=== PATIENT | female | born 1950 | race Asian ===

== ENCOUNTER 2024-08-16 03:55 | Emergency (ER) | payer BC, SELFPAY ==
[2024-08-16] VITALS (18 sets, daily range): BP systolic 138–175; BP diastolic 54–100; PULSE 55–66; TEMP 36.9; O2SAT 93–99; BMI 24.7
--- NOTE | 2024-08-16 04:12 | ECG_ITS ---
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
--- NOTE | 2024-08-16 04:21 | ED_ITS ---
HPI - Abdominal Pain General Chief Complaint: Abdominal Pain Stated Complaint: ABDOMINAL PAIN Time Seen by Provider: 08/16/24 04:12 Source: patient Mode of arrival: walk-in Limitations: no limitations History of Present Illness HPI narrative: The patient presents to the ER with right upper quadrant pain associated with epigastric pain that is burning in nature, this pain has been going on since which is almost 5 days ago The patient mentioned that the pain is not associate with any nausea vomiting or any change in bowel movement She mentioned that sometimes the pain radiates to her right ear The patient pain was not specific she mentioned that sometimes in the lower chest and it is also with taking a deep breath Related Data Previous Rx's ?Medication ?Instructions ?Recorded bisacodyl 5 mg tablet,delayed 5 mg PO DAILY PRN constipation #10 08/16/24 release (Dulcolax (bisacodyl)) tabs Allergies Allergy/AdvReac Type Severity Reaction Status Date / Time No Known Drug Allergies Allergy Verified 08/16/24 04:03 Review of Systems ROS Status of ROS 10 or more systems reviewed and unremark able except as noted in history and below PFSH PFSH Social History Little interest or pleasure in doing things: not at all Feeling down, depressed, or hopeless: not at all Exam Narrative Exam Narrative: Nurses notes and vital signs reviewed and patient is not hypoxic. General: Well-appearing and in no apparent distress. Skin: Warm, dry, no pallor noted. No rash. Head: Normocephalic, atraumatic. Neck: Supple, non-tender. Eye: Pupils are equal, round and EOMI. No scleral icterus. Ears, Nose, Mouth, and Throat: TM are clear, no nasal mucosal hypertrophy. Oral mucosa is moist, no posterior oropharynx erythema, uvula is mid-line Cardiovascular: Regular Rate and Rhythm without murmur, gallop or rub. Respiratory: No accessory muscle use or respiratory distress. Lungs are clear to auscultation, no wheezing, rales or rhonchi Chest Wall: no tenderness Back: No midline thoracic or lumbar vertebral tenderness. No CVA tenderness Musculoskeletal: normal ROM, no calf or popliteal tenderness, no lower extremity edema/swelling GI: Abdomen is soft, non-distended. Normal bowel sounds. No masses appreciated. No tenderness to palpation. No rebound, guarding, or rigidity noted. Constitutional Vital Signs, click to edit/add: Last Vital Signs Temp 98.4 F 08/16/24 04:14 Pulse 56 L 08/16/24 06:00 Resp 17 08/16/24 06:00 BP 165/54 H 08/16/24 06:00 Pulse Ox 97 08/16/24 06:00 O2 Del Method Room Air 08/16/24 04:14 Course Vital Signs Vital signs: Vital Signs Blood Pressure 168/100 H 08/16/24 04:10 Pulse Oximetry 98 08/16/24 04:10 Temperature 98.4 F 08/16/24 04:14 Pulse Rate 56 L 08/16/24 06:00 Respiratory Rate 17 08/16/24 06:00 Blood Pressure 165/54 H 08/16/24 06:00 Pulse Oximetry 97 08/16/24 06:00 Oxygen Delivery Method Room Air 08/16/24 04:14 MDM - Abdominal Pain MDM Narrative Medical decision making narrative: The patient EKG was showing sinus rhythm with a heart rate of [address] elevation or depression The patient pain was not specific I could not elicit the pain on exam and the patient was complaining of having pain in her lower chest and the upper abdomen on the right side The patient CBC and chemistry showed no acute pathology with her blood sugar was 500 with no anion gap or any acidosis The patient was provided IV fluid in addition to insulin she mentioned that she did not take her medication yesterday because she did not eat Although the patient does take Lantus as well The patient CAT scan showed that she have constipation and cholelithiasis but there is no tenderness in the right upper quadrant and no concern for gallbladder infection Patient pain is not typical for right upper quadrant pain and I could not elicit the pain with palpation The patient already have her insulin at home and she does not need any refills The patient CAT scan shows constipation and with the fact that she is not tender and the fact that the pain is crampy-like The patient was discharged with Dulcolax for constipation management with instruction to come back to the ER in case of any worsening of symptoms The patient is to follow up with primary care physician in next 2-3 days or to return to the emergency department should any of the signs or symptoms worsen or new symptoms develop. The patient agrees with the following Diagnosis and Treatment plan and the patient will be discharged home. Lab Data Labs: Lab Results 08/16/24 08/16/2425 Range/Units 04:05 04:30 06:18 WBC 5.0 (4.0-11.0) 10^3/uL RBC 4.76 (4.20-5.40) 10^6/uL Hgb 14.7 (12.0-16.0) g/dL Hct 41.5 (36.0-48.0) % MCV 87.2 (81.0-99.0) fL MCH 30.9 (26.7-34.0) pg MCHC 35.4 H (29.9-35.2) g/dL RDW 11.9 (11.0-15.0) % Plt Count 234 (150-450) 10^3/uL MPV 9.9 (9.5-13.5) fL Neut % (Auto) 50.1 (43.0-75.0) % Lymph % (Auto) 37.4 (20.5-60.0) % [place] % (Auto) 9.5 (1.7-12.0) % Eos % (Auto) 2.4 (0.9-7.0) % Baso % (Auto) 0.6 (0.2-2.0) % Neut # (Auto) 2.5 (1.4-6.5) 10^3/uL Lymph # (Auto) 1.9 (1.2-3.8) 10^3/uL [place] # (Auto) 0.5 (0.3-0.8) 10^3/uL Eos # (Auto) 0.1 (0.0-0.7) 10^3/uL Baso # (Auto) 0.0 (0.0-0.1) 10^3/uL Abs Immat Gran (auto) 0.00 (0.00-0.03) 10^3/uL Imm/Tot Granulo (auto) 0.0 (0.0-0.5) % PT 10.0 (9.0-11.6) sec INR 0.94 Sodium 132 L (136-145) mmol/L Potassium 4.0 (3.5-5.1) mmol/L Chloride 96 L (98-107) mmol/L Carbon Dioxide 26.7 (21.0-32.0) mmol/L Anion Gap 13.3 BUN 15.0 (7.0-18.0) mg/dL Creatinine 0.91 (0.55-1.02) mg/dL Est GFR ( Amer) >60 (>=60 mL/min/1.73m^2) Est GFR (Non-Af Amer) >60 (>=60 mL/min/1.73m^2) BUN/Creatinine Ratio 16.5 Glucose 515 H* (74-106) mg/dL Calcium 9.5 (8.5-10.1) mg/dL Total Bilirubin 0.5 (0.2-1.0) mg/dL AST 17 (15-37) U/L ALT 35 (14-59) U/L Alkaline Phosphatase 132 H (46-116) U/L Troponin I High Sens 5.5 5.5 (4.0-51.3) pg/mL Total Protein 7.2 (6.4-8.2) g/dL Albumin 3.7 (3.4-5.0) g/dL Globulin 3.5 g/dL Albumin/Globulin Ratio 1.1 Urine Color Lt. yellow (YELLOW) Urine Clarity Clear (CLEAR) Urine pH 5.5 (5.0-9.0) Ur Specific [place] 1.010 (1.005-1.025) Urine Protein Negative (NEG/TRACE) mg/dL Urine Glucose (UA) >=1000 A (NEGATIVE) mg/dL Urine Ketones Negative (NEGATIVE) mg/dL Urine Occult Blood Negative (NEGATIVE) Urine Nitrite Negative (NEGATIVE) Urine Bilirubin Negative (NEGATIVE) Urine Urobilinogen 0.2 (0.2-1.0) EU/dL Ur Leukocyte Esterase Negative (NEGATIVE) Urine RBC 0-2 (0-2) #/HPF Urine WBC 0-2 A (NONE SEEN) #/HPF Ur Squamous Epith Cells None seen (NONE/RARE) #/LPF Urine Crystals None seen (None Seen) #/HPF Urine Bacteria Large A (NONE SEEN) #/HPF Urine Casts None seen (NONE SEEN) #/LPF Urine Mucus None seen (NONE SEEN) Ur Culture Indicated? Yes-[facility] [place] POC Glucose (74-106) mg/dL 08/16/24 Range/Units 06:33 WBC (4.0-11.0) 10^3/uL RBC (4.20-5.40) 10^6/uL Hgb (12.0-16.0) g/dL Hct (36.0-48.0) % MCV (81.0-99.0) fL MCH (26.7-34.0) pg MCHC (29.9-35.2) g/dL RDW (11.0-15.0) % Plt Count (150-450) 10^3/uL MPV (9.5-13.5) fL Neut % (Auto) (43.0-75.0) % Lymph % (Auto) (20.5-60.0) % [place] % (Auto) (1.7-12.0) % Eos % (Auto) (0.9-7.0) % Baso % (Auto) (0.2-2.0) % Neut # (Auto) (1.4-6.5) 10^3/uL Lymph # (Auto) (1.2-3.8) 10^3/uL [place] # (Auto) (0.3-0.8) 10^3/uL Eos # (Auto) (0.0-0.7) 10^3/uL Baso # (Auto) (0.0-0.1) 10^3/uL Abs Immat Gran (auto) (0.00-0.03) 10^3/uL Imm/Tot Granulo (auto) (0.0-0.5) % PT (9.0-11.6) sec INR Sodium (136-145) mmol/L Potassium (3.5-5.1) mmol/L Chloride (98-107) mmol/L Carbon Dioxide (21.0-32.0) mmol/L Anion Gap BUN (7.0-18.0) mg/dL Creatinine (0.55-1.02) mg/dL Est GFR ( Amer) (>=60 mL/min/1.73m^2) Est GFR (Non-Af Amer) (>=60 mL/min/1.73m^2) BUN/Creatinine Ratio Glucose (74-106) mg/dL Calcium (8.5-10.1) mg/dL Total Bilirubin (0.2-1.0) mg/dL AST (15-37) U/L ALT (14-59) U/L Alkaline Phosphatase (46-116) U/L Troponin I High Sens (4.0-51.3) pg/mL Total Protein (6.4-8.2) g/dL Albumin (3.4-5.0) g/dL Globulin g/dL Albumin/Globulin Ratio Urine Color (YELLOW) Urine Clarity (CLEAR) Urine pH (5.0-9.0) Ur Specific [place] (1.005-1.025) Urine Protein (NEG/TRACE) mg/dL Urine Glucose (UA) (NEGATIVE) mg/dL Urine Ketones (NEGATIVE) mg/dL Urine Occult Blood (NEGATIVE) Urine Nitrite (NEGATIVE) Urine Bilirubin (NEGATIVE) Urine Urobilinogen (0.2-1.0) EU/dL Ur Leukocyte Esterase (NEGATIVE) Urine RBC (0-2) #/HPF Urine WBC (NONE SEEN) #/HPF Ur Squamous Epith Cells (NONE/RARE) #/LPF Urine Crystals (None Seen) #/HPF Urine Bacteria (NONE SEEN) #/HPF Urine Casts (NONE SEEN) #/LPF Urine Mucus (NONE SEEN) Ur Culture Indicated? POC Glucose 394 H (74-106) mg/dL Discharge Plan Discharge Chief Complaint: Abdominal Pain Clinical Impression: Abdominal pain, Constipation, Hyperglycemia Patient Disposition: Home, Self-Care Time of Disposition Decision: 06:27 Condition: Good Prescriptions / Home Meds: New bisacodyl [Dulcolax (bisacodyl)] 5 mg tablet,delayed release (DR/EC) 5 mg PO DAILY PRN (Reason: constipation) Qty: 10 0RF Print Language: Barbadian Instructions: Constipation (DC), Diabetic Hyperglycemia (ED) Referrals: Physician,Non-Staff, MD [Primary Care Provider] - 1 week
[2024-08-16 04:25] LABS: Bilirubin Urine NEGATIVE (NEGATIVE); Blood Urine NEGATIVE (NEGATIVE); Clarity Urine CLEAR (CLEAR); Color Urine LT. YELLOW (YELLOW); Glucose Urine UA >=1000 mg/dL (NEGATIVE); Ketones Urine NEGATIVE (NEGATIVE); Leukocyte Esterase Urine NEGATIVE (NEGATIVE); Nitrite Urine NEGATIVE (NEGATIVE); Protein Urine NEGATIVE (NEG/TRACE); Urine Microscopic Indicated YES; Urobilinogen Urine 0.2 EU/dL (0.2-1.0); pH Urine 5.5 (5.0-9.0)
[2024-08-16 04:33] LABS: Bacteria Urine LARGE #/HPF (NONE SEEN); Crystals Seen? None Seen #/HPF (None Seen); Mucus Urine NONE SEEN (NONE SEEN); RBC Urine 0-2 #/HPF (0-2); Squamous Epithelial Cell Urine NONE SEEN #/LPF (NONE/RARE); WBC Urine 0-2 #/HPF (NONE SEEN)
[2024-08-16 04:34] LABS: Cast Seen? NONE SEEN #/LPF (NONE SEEN); Urine Culture Indicated YES-FRMC
[2024-08-16 04:39] LABS: Basophils Percent Auto 0.6 % (0.2-2.0); Eosinophils Absolute Auto 0.1 10^3/uL (0.0-0.7); Eosinophils Percent Auto 2.4 % (0.9-7.0); Hematocrit 41.5 % (36.0-48.0); Hemoglobin 14.7 g/dL (12.0-16.0); Lymphocytes Absolute Auto 1.9 10^3/uL (1.2-3.8); Lymphocytes Percent Auto 37.4 % (20.5-60.0); Mean Corpuscular HGB Conc 35.4 g/dL (29.9-35.2); Mean Corpuscular Hemoglobin 30.9 pg (26.7-34.0); Mean Corpuscular Volume 87.2 fL (81.0-99.0); Mean Platelet Volume 9.9 fL (9.5-13.5); Monocytes Absolute Auto 0.5 10^3/uL (0.3-0.8); Monocytes Percent Auto 9.5 % (1.7-12.0); Neutrophils Absolute Auto 2.5 10^3/uL (1.4-6.5); Neutrophils Percent Auto 50.1 % (43.0-75.0); Platelet Count 234 10^3/uL (150-450); Red Blood Count 4.76 10^6/uL (4.20-5.40); Red Cell Distribution Width 11.9 % (11.0-15.0)
[2024-08-16 04:54] LABS: INR 0.94
[2024-08-16 04:57] LABS: Alanine Aminotransferase 35 U/L (14-59); Albumin Globulin Ratio 1.1; Albumin Level 3.7 g/dL (3.4-5.0); Alkaline Phosphatase 132 U/L (46-116); Anion Gap 13.3; Aspartate Amino Transferase 17 U/L (15-37); BUN Creatinine Ratio 16.5; Bilirubin Total 0.5 mg/dL (0.2-1.0); Calcium 9.5 mg/dL (8.5-10.1); Carbon Dioxide 26.7 mmol/L (21.0-32.0); Chloride 96 mmol/L (98-107); Estimated GFR (African America >60 (>=60 mL/min/1.73m^2); Estimated GFR (Non-African Ame >60 (>=60 mL/min/1.73m^2); Globulin 3.5 g/dL; Sodium 132 mmol/L (136-145); Total Protein 7.2 g/dL (6.4-8.2); Troponin I High Sensitivity 5.5 pg/mL (4.0-51.3)
[2024-08-16 05:00] LABS: Glucose 515 mg/dL (74-106)
[2024-08-16] MEDS: 0.9 % SODIUM CHLORIDE 1,000 ML 1000 ML IV (05:20)
[2024-08-16] MEDS: INSULIN REGULAR, HUMAN (100 UNIT/ML) 10 ML MDV 10 UNIT SUBQ (05:28)
[2024-08-16] MEDS: KETOROLAC TROMETHAMINE 30 MG/ML VIAL 15 MG IVP (06:18)
[2024-08-16 06:35] LABS: Glucometer 394 mg/dL (74-106)
[2024-08-16 06:40] LABS: Troponin I High Sensitivity 5.5 pg/mL (4.0-51.3)
--- NOTE | 2024-08-16 06:53 | PC.NURSE ---
i gave this patient verbal and paper discharge orders along with 1 e-scripts and this patient voices yes to understanding these. at time of discharge this patient voices no concerns and shows no signs of distress
[2024-08-17 04:07] LABS: Insulin 10.2 uIU/mL (2.6-24.9)
== END 2024-08-16 06:54 | disposition home or self-care (01) ==
PROVIDERS: Emergency Provider Emergency Medicine
DX: K59.00 Constipation, unspecified (principal); R10.9 Unspecified abdominal pain; Z79.4 Long term (current) use of insulin; K80.20 Calculus of gallbladder without cholecystitis without obstruction; R73.9 Hyperglycemia, unspecified
CPT/HCPCS: 36415; 74176; 80053; 81001; 83525; 84484; 85025; 85610; 87086; 87150; 87186; 93005; 96374; 99285; J1817; J1885

== ENCOUNTER 2024-08-18 06:24 | Emergency (ER) | payer BC, SELFPAY ==
[2024-08-18] VITALS (10 sets, daily range): BP systolic 159–166; BP diastolic 67–78; PULSE 70; TEMP 36.8; O2SAT 95–99; BMI 24.7
--- NOTE | 2024-08-18 06:40 | ED_ITS ---
HPI HPI - General Adult General Chief complaint: Headache Stated complaint: abd px leading to head Time Seen by Provider: 08/18/24 06:33 Source: patient Mode of arrival: walk-in Limitations: no limitations History of Present Illness HPI narrative: This 74-year-old female who was seen here several days ago with right upper quadrant abdominal pain that was nonreproducible with a CT scan that showed gallstones and constipation with no sign of acute cholecystitis presents for evaluation of increased pain in the right side of her chest and on the right side of her back associated with the rash. She states the rash broke out yesterday. She has not been eating or drinking or taking her insulin because when she does not feel good she does not eat drink or take her insulin. She denies any nausea or vomiting but states she does not have any appetite. She also has a generalized headache. She does not recall if she had shingles as a child but thinks she may have. The rash is underneath her right breast and radiates around the right flank to her thoracic spine in the T5-T6 distribution. Related Data Previous Rx's ?Medication ?Instructions ?Recorded bisacodyl 5 mg tablet,delayed 5 mg PO DAILY PRN constipation #10 08/16/24 release (Dulcolax (bisacodyl)) tabs Allergies Allergy/AdvReac Type Severity Reaction Status Date / Time No Known Drug Allergies Allergy Verified 08/18/24 06:36 Opioid HPI Opioid Management Most Recent Opioid Data: Last Pain Scale 5 08/18/24 06:40 08/18/24 Last ED Pain Assessment 08/16/24 06:21 Review of Systems ROS Status of ROS 10 or more systems reviewed and unremark able except as noted in history and below PFSH PFSH Social History Little interest or pleasure in doing things: not at all Feeling down, depressed, or hopeless: not at all Exam Narrative Exam Narrative: Vital signs and Nursing Notes reviewed: Is afebrile with a normal pulse, blood pressure is elevated at 162/75, she is not hypoxic with pulse ox of 98% on room air General: Awake, alert, oriented, nontoxic female, she occasionally has episodes where she winces in pain due to the rash on her abdomen and back HEENT: Normocephalic atraumatic, mucous membranes are pink and dry, no oral lesions noted Neck: Supple, no meningeal signs, no anterior or posterior cervical lymphadenopathy Chest: Lungs are clear to auscultation with good air entry, there is no wheezing rhonchi or rales appreciated no accessory muscle use, patient is speaking in complete sentences-no chest wall tenderness to palpation CVS: Regular rate and rhythm S1-S2, no murmurs rubs or gallops, pulses are brisk and equal bilaterally ABD: Soft, nondistended, nontender, no rebound guarding or rigidity, bowel sounds are normal, no pulsatile masses appreciated Extremities: Moving all extremities, no lower extremity tenderness or swelling noted, negative Homans' sign, pulses are brisk and equal bilaterally Skin: [place] vesicular rash underneath the right breast and around the right flank ending at the right mid thoracic spine consistent with herpes zoster Neuro: No focal deficits Constitutional Vital Signs, click to edit/add: Last Vital Signs Temp 98.2 F 08/18/24 06:37 Pulse 70 08/18/24 06:37 Resp 19 08/18/24 06:37 BP 162/75 H 08/18/24 06:37 Pulse Ox 98 08/18/24 06:37 O2 Del Method Room Air 08/18/24 06:37 Course Vital Signs Vital signs: Vital Signs Temperature 98.2 F 08/18/24 06:37 Pulse Rate 70 08/18/24 06:37 Respiratory Rate 19 08/18/24 06:37 Blood Pressure 162/75 H 08/18/24 06:37 Pulse Oximetry 98 08/18/24 06:37 Oxygen Delivery Method Room Air 08/18/24 06:37 Temperature 98.2 F 08/18/24 06:37 Pulse Rate 70 08/18/24 06:37 Respiratory Rate 19 08/18/24 06:37 Blood Pressure 162/75 H 08/18/24 06:37 Pulse Oximetry 98 08/18/24 06:37 Oxygen Delivery Method Room Air 08/18/24 06:37 Medical Decision Making MDM Narrative Medical decision making narrative: This patient was seen several days ago for right upper quadrant abdominal pain at that time she was noted to have gallstones and constipation on her CT scan. Her glucose was elevated greater than 500. She presents today for pain in the right upper quadrant that wraps around her right flank and a vesicular rash consistent with herpes zoster. I did review her workup from the other day in which she had a glucose greater than 500 which she stated was because she was not eating drinking or taking her insulin because she was not eating or drinking. Her mucous membranes are dry. Her vital signs are otherwise stable with an elevated blood pressure. An IV was placed and routine labs were ordered. She was medicated with IV fluids and Toradol for her pain as well as Zofran. She had 2 normal troponins 2 days ago. Labs are pending at this time. She will be signed out to the incoming physician at 7 AM. Medical Records Medical records reviewed: Yes I reviewed the patient's medical records Discharge Plan Discharge Chief Complaint: Headache Clinical Impression: Herpes zoster Patient Disposition: Still a Patient Prescriptions / Home Meds: No Action bisacodyl [Dulcolax (bisacodyl)] 5 mg tablet,delayed release (DR/EC) 5 mg PO DAILY PRN (Reason: constipation) Qty: 10 0RF Print Language: Afghan Referrals: Physician,Non-Staff, MD [Primary Care Provider] - 1 week
[2024-08-18 07:06] LABS: PCO2 VBG 40.4 mmHg (40.0-52.0); pH VBG 7.401 (7.330-7.430)
[2024-08-18] MEDS: 0.9 % SODIUM CHLORIDE 1,000 ML 1000 ML IV (07:17)
[2024-08-18] MEDS: ONDANSETRON PF 4 MG/2 ML VIAL IV (07:18)
[2024-08-18] MEDS: KETOROLAC TROMETHAMINE 30 MG/ML VIAL IVP (07:18)
[2024-08-18 07:24] LABS: Alanine Aminotransferase 25 U/L (14-59); Albumin Globulin Ratio 1.1; Albumin Level 3.7 g/dL (3.4-5.0); Alkaline Phosphatase 75 U/L (46-116); Anion Gap 13.9; Aspartate Amino Transferase 20 U/L (15-37); BUN Creatinine Ratio 6.8; Bilirubin Total 0.6 mg/dL (0.2-1.0); Calcium 8.9 mg/dL (8.5-10.1); Carbon Dioxide 25.1 mmol/L (21.0-32.0); Chloride 100 mmol/L (98-107); Estimated GFR (African America >60 (>=60 mL/min/1.73m^2); Estimated GFR (Non-African Ame >60 (>=60 mL/min/1.73m^2); Globulin 3.3 g/dL; Glucose 312 mg/dL (74-106); Sodium 135 mmol/L (136-145)
--- NOTE | 2024-08-18 08:20 | ED.GENADUL1 ---
HPI HPI - General Adult General Chief complaint: Headache Stated complaint: abd px leading to head Time Seen by Provider: 08/18/24 06:33 Source: patient Mode of arrival: walk-in Limitations: no limitations Related Data Previous Rx's ?Medication ?Instructions ?Recorded bisacodyl 5 mg tablet,delayed 5 mg PO DAILY PRN constipation #10 08/16/24 release (Dulcolax (bisacodyl)) tabs levofloxacin 500 mg tablet 500 mg PO DAILY 7 days #7 tabs 08/18/24 Allergies Allergy/AdvReac Type Severity Reaction Status Date / Time No Known Drug Allergies Allergy Verified 08/18/24 06:36 Opioid HPI Opioid Management Most Recent Opioid Data: Last Pain Scale 6 08/18/24 09:03 08/18/24 Last ED Pain Assessment 08/16/24 06:21 Last MAR Pain Assessment 08/18/24 09:03 PFSH PFSH Social History Little interest or pleasure in doing things: not at all Feeling down, depressed, or hopeless: not at all Exam Constitutional Vital Signs, click to edit/add: Last Vital Signs Temp 98.2 F 08/18/24 06:37 Pulse 70 08/18/24 06:37 Resp 19 08/18/24 06:37 BP 166/67 H 08/18/24 07:30 Pulse Ox 99 08/18/24 07:40 O2 Del Method Room Air 08/18/24 06:37 Course Vital Signs Vital signs: Vital Signs Pulse Oximetry 98 08/18/24 06:31 Temperature 98.2 F 08/18/24 06:37 Pulse Rate 70 08/18/24 06:37 Respiratory Rate 19 08/18/24 06:37 Blood Pressure 166/67 H 08/18/24 07:30 Pulse Oximetry 99 08/18/24 07:40 Oxygen Delivery Method Room Air 08/18/24 06:37 Medical Decision Making MDM Narrative Medical decision making narrative: Patient was signed out to me by Dr. Mckenzie pending labs and reevaluation. Patient's labs show an elevated blood sugar although it is better than it was a couple of days ago. Patient states when she gets sick she does not take her insulin like she should. On my evaluation patient does have the rash around the right side which is consistent with shingles but she does still complain of a headache. She received Toradol and it did make her pain go from a 10 to a 6 however she still winces periodically in pain from her headache. I added Tylenol because she does have to drive herself home. I will do a CT scan of her head to make sure there is nothing else going on. Patient comfortable with this plan. CT brain negative for any acute findings. Urine culture came back from her previous urine sample that did show E. coli and a urinary tract infection. Results show that it sensitive to Levaquin which she was given her first dose here and written for prescription for home. Continue Tylenol and Motrin for the headache take gabapentin for the nerve pain and the Valtrex for the shingles. Return to ED if worsening symptoms otherwise follow-up with your family doctor. Patient is comfortable with care plan for home. Prior to discharge she ambulated to the bathroom without any issues. Differential Diagnosis Differential Diagnosis: Shingles, UTI, intracranial hemorrhage, headache Medical Records Medical records reviewed: Yes I reviewed the patient's medical records Lab Data Lab results reviewed: Yes I reviewed the patient's lab results Labs: Lab Results 08/18/24 Range/Units 06:50 WBC 6.1 (4.0-11.0) 10^3/uL RBC 4.64 (4.20-5.40) 10^6/uL Hgb 14.2 (12.0-16.0) g/dL Hct 41.7 (36.0-48.0) % MCV 89.9 (81.0-99.0) fL MCH 30.6 (26.7-34.0) pg MCHC 34.1 (29.9-35.2) g/dL RDW 12.5 (11.0-15.0) % Plt Count 212 (150-450) 10^3/uL MPV 10.2 (9.5-13.5) fL Neut % (Auto) 66.9 (43.0-75.0) % Lymph % (Auto) 23.1 (20.5-60.0) % [place] % (Auto) 7.3 (1.7-12.0) % Eos % (Auto) 2.1 (0.9-7.0) % Baso % (Auto) 0.3 (0.2-2.0) % Neut # (Auto) 4.1 (1.4-6.5) 10^3/uL Lymph # (Auto) 1.4 (1.2-3.8) 10^3/uL [place] # (Auto) 0.4 (0.3-0.8) 10^3/uL Eos # (Auto) 0.1 (0.0-0.7) 10^3/uL Baso # (Auto) 0.0 (0.0-0.1) 10^3/uL Abs Immat Gran (auto) 0.02 (0.00-0.03) 10^3/uL Imm/Tot Granulo (auto) 0.3 (0.0-0.5) % VBG pH 7.401 (7.330-7.430) VBG pCO2 40.4 (40.0-52.0) mmHg Sodium 135 L (136-145) mmol/L Potassium 4.0 (3.5-5.1) mmol/L Chloride 100 (98-107) mmol/L Carbon Dioxide 25.1 (21.0-32.0) mmol/L Anion Gap 13.9 BUN 5.0 L (7.0-18.0) mg/dL Creatinine 0.73 (0.55-1.02) mg/dL Est GFR ( Amer) >60 (>=60 mL/min/1.73m^2) Est GFR (Non-Af Amer) >60 (>=60 mL/min/1.73m^2) BUN/Creatinine Ratio 6.8 Glucose 312 H (74-106) mg/dL Calcium 8.9 (8.5-10.1) mg/dL Total Bilirubin 0.6 (0.2-1.0) mg/dL AST 20 (15-37) U/L ALT 25 (14-59) U/L Alkaline Phosphatase 75 (46-116) U/L Total Protein 7.0 (6.4-8.2) g/dL Albumin 3.7 (3.4-5.0) g/dL Globulin 3.3 g/dL Albumin/Globulin Ratio 1.[address] scan - head: Attestation: I have reviewed the pertinent imaging results. Discharge Plan Discharge Chief Complaint: Headache Clinical Impression: Herpes zoster, Acute UTI Patient Disposition: Home, Self-Care Time of Disposition Decision: 10:03 Condition: Good Mode of Transportation: Private Vehicle Prescriptions / Home Meds: New levofloxacin 500 mg tablet 500 mg PO DAILY 7 Days Qty: 7 0RF No Action bisacodyl [Dulcolax (bisacodyl)] 5 mg tablet,delayed release (DR/EC) 5 mg PO DAILY PRN (Reason: constipation) Qty: 10 0RF Print Language: Telugu Instructions: Shingles (ED), Urinary Tract Infection in Older Adults (ED) Referrals: Physician,Non-Staff, MD [Primary Care Provider] - 1 week Discharge Date/Time: 08/18/24 10:15
[2024-08-18] MEDS: ACETAMINOPHEN 325 MG TABLET 650 MG PO (09:03)
[2024-08-18] MEDS: LEVOFLOXACIN 500 MG TABLET PO (09:04)
[2024-08-18 09:06] LABS: Basophils Percent Auto 0.3 % (0.2-2.0); Eosinophils Absolute Auto 0.1 10^3/uL (0.0-0.7); Eosinophils Percent Auto 2.1 % (0.9-7.0); Hematocrit 41.7 % (36.0-48.0); Hemoglobin 14.2 g/dL (12.0-16.0); Immature Granulocytes Abs Auto 0.02 10^3/uL (0.00-0.03); Immature Granulocytes Pct Auto 0.3 % (0.0-0.5); Lymphocytes Absolute Auto 1.4 10^3/uL (1.2-3.8); Lymphocytes Percent Auto 23.1 % (20.5-60.0); Mean Corpuscular HGB Conc 34.1 g/dL (29.9-35.2); Mean Corpuscular Hemoglobin 30.6 pg (26.7-34.0); Mean Corpuscular Volume 89.9 fL (81.0-99.0); Mean Platelet Volume 10.2 fL (9.5-13.5); Monocytes Absolute Auto 0.4 10^3/uL (0.3-0.8); Monocytes Percent Auto 7.3 % (1.7-12.0); Neutrophils Absolute Auto 4.1 10^3/uL (1.4-6.5); Neutrophils Percent Auto 66.9 % (43.0-75.0); Platelet Count 212 10^3/uL (150-450); Red Blood Count 4.64 10^6/uL (4.20-5.40); Red Cell Distribution Width 12.5 % (11.0-15.0); White Blood Count 6.1 10^3/uL (4.0-11.0)
== END 2024-08-18 10:15 | disposition home or self-care (01) ==
PROVIDERS: Emergency Medicine; Emergency Provider Emergency Medicine
DX: B02.9 Zoster without complications (principal); N39.0 Urinary tract infection, site not specified; B96.20 Unspecified Escherichia coli [E. coli] as the cause of diseases classified elsewhere; R51.9 Headache, unspecified; Z79.4 Long term (current) use of insulin
CPT/HCPCS: 36415; 70450; 80053; 82800; 85025; 96374; 96375; 99284; J1885; J2405